=== PATIENT | female | born 1990 | race Caucasian/White ===

== ENCOUNTER 2017-01-02 06:39 | Inpatient (IN) ==
[2017-01-02] MEDS ORDERED: CITRIC ACID/SODIUM CITRATE 30 ML UDCUP PO ONE (07:36)
[2017-01-02] MEDS ORDERED: FAMOTIDINE 20 MG/2 ML VIAL IV ONE (07:36)
[2017-01-02 08:00] LABS: Basophils # 0.1 10*3/uL (0.0-0.2); Basophils % 0.4 % (0.0-0.8); Eosinophils # 0.1 10*3/uL (0.0-0.87); Eosinophils % 0.9 % (0.00-10.9); Hematocrit 36.5 VOL% (35.7-47.0); Hemoglobin 12.7 GM/DL (12.0-16.0); Immature Granulocytes % 0.6 %; Immature Granulocytes Absolute 0.07 #; Lymphocytes # 2.9 10*3/uL (1.4-4.0); Mean Corpuscular HGB Conc 34.8 GM/DL (32-36); Mean Corpuscular Hemoglobin 30 PG (27-34); Mean Corpuscular Volume 87.3 FL (87-102); Mean Platelet Volume 9.8 FL (9.6-12.0); Monocytes # 0.6 10*3/uL (0.11-0.8); Monocytes % 4.7 % (1.7-12.7); Neutrophils # 8.8 10*3/uL (1.4-7.4); Neutrophils % 70.4 % (38.7-73.9); Platelet Count 278 T/CUMM (130-400); Red Blood Count 4.18 MC/CUMM (3.8-5.5); Red Cell Distribution Width 14.3 % (9.3-17.3); White Blood Count 12.5 T/CUMM (4-12)
[2017-01-02] MEDS ORDERED: OXYTOCIN/LR 30 UNIT/1,000 ML BAG IV ONE (08:00)
[2017-01-02] MEDS ORDERED: OXYTOCIN 10 UNIT/ML VIAL IM ONE (08:00)
[2017-01-02 08:14] LABS: INR 0.8
[2017-01-02] MEDS: LACTATED RINGERS 1,000 ML IV SCH ×3 (08:31→09:40)
--- NOTE | 2017-01-02 08:33 | XRay Report ---
Exam: XR KUB Date: 01/02/2017 6:52 AM Comparison: None Indication: position Technique:[Portable supine abdomen] Findings: Nonobstructed bowel gas pattern. Single intrauterine fetus in the breech presentation with a spine on the maternal right side. No acute osseous findings are noted. Impression: Single intrauterine fetus in the breech presentation. Nonobstructed bowel gas pattern. PROCEDURE INTERPRETED AT [facility] DEPARTMENT OF RADIOLOGY Final Report Signed by: Dr. Helen Tellez
[2017-01-02 08:38] LABS: Alanine Aminotransferase 13 U/L (13-56); Albumin 2.6 G/DL (3.4-5.0); Alkaline Phosphatase 236 U/L (45-117); Aspartate Amino Transferase 15 U/L (0-37); Bilirubin,Total < 0.39 MG/DL (0.2-1.0); Blood Urea Nitrogen 6 MG/DL (7-18); Calcium 8.4 MG/DL (8.5-10.1); Glucose 83 MG/DL (74-106); Osmolality,Calculated 271.7 MOS/KG (273-304); Potassium 4.4 MMOL/L (3.5-5.1); Sodium 138 MMOL/L (136-145)
--- NOTE | 2017-01-02 09:33 | OB/GYN History & Physical ---
History of Present Illness Chief complaint: In for primary c/s due to breech presentation. History of present illness: Ms. Esquivel is a 26 year old female who is a primigravida. Her YANNI is 2017 for an estimated gestational age of 39 weeks. The patient presents to the labor department for primary section due to term in breech presentation the patient received her care through the [facility] and she received routine care and her course was uneventful. The risk and benefits has been thoroughly discussed with this patient and significant other, plan of care has been discussed with Dr. Reyes and all parties are in agreement plan of care. labs: She is O- she did receive RhoGam. Rubella is immune, RPR is nonreactive, hepatitis B negative, HIV negative, GBS cultures positive. Review of systems is negative with exception of above. Home Medications Medication Instructions Recorded Confirmed Type Folic Acid Tab 1 tablet PO DAILY 12/19/16 01/02/17 History No122/Iron/Folic Acid 1 tablet PO DAILY 12/19/16 01/02/17 History [ Multi Tablet] Allergies Allergy/AdvReac Type Severity Reaction Status Date / Time No Known Allergies Allergy Verified 01/02/17 07:34 12 point system: reviewed and no additional remarkable complaints except as stated Medical,Surgical,& Family Hx - Medical History Cardio: History of: Hypertension (no meds) - Surgical History HEENT Surgeries: Surgical HX of: Eye Surgery Abdominal Surgeries: Patient denies: Abdominal Surgery - Family History Family History: noncontributory Family History: Denies;: Family Anesthesia Reaction, Family Cancer, Family Diabetes, Family Heart Disease, Family Hematology, Family Hypertension, Family Psychiatric Problems, Family Stroke, Additional Family History - Social History Smoking Status: Never smoker Frequency of Alcohol Use: None Type of Drug Use: None Marital Status: Lives With:: Spouse Functional capacity: independent ambulation Exam ASSURANCE SENIOR MANAGER - Constitutional Vitals: Vital Signs Temp Pulse Resp BP Pulse Ox 01/02/17 07:54 97.3 F L 106 H 20 127/86 97 General appearance: no acute distress - Antepartum / Post Antepartum Exam Cervix - Dilatation: Deferred Abdomen obstetrics: Present: bowel sounds normal Uterus exam: Present: enlarged - Respiratory Respiratory exam: Present: clear to auscultation bilaterally - Cardiovascular Cardiovascular exam: Present: regular rate and rhythm - GI/Abdominal GI/Abdominal exam: Present: normal bowel sounds, soft - Extremities Exam Extremities exam: Present: normal inspection - Neurological Exam Neurological exam: Present: alert, oriented X3 - Psychiatric Psychiatric exam: Present: normal affect, normal mood - Skin Skin exam: Present: normal color, warm Assessment and Plan (1) 39 weeks gestation of Status: Acute Assessment and plan: Admit IV fluids Preop patient for primary section due to breech presentation Obtain informed consent for primary section Anticipate delivery of viable Current Visit: Yes (2) Breech presentation Status: Acute Assessment and plan: Same as above Current Visit: Yes Qualifiers: Fetus number: single or unspecified fetus Qualified Code(s): O32.1XX0 - Maternal care for breech presentation, not applicable or unspecified Results - Labs CBC & BMP: 01/02/17 07:50 01/02/17 07:50
[2017-01-02] MEDS ORDERED: ONDANSETRON 4 MG/2 ML VIAL ONE (10:01)
[2017-01-02] MEDS ORDERED: PHENYLEPHRINE 1 MG/10 ML SYRINGE IV ONE (10:01)
[2017-01-02] MEDS ORDERED: OXYTOCIN/LR 20 UNIT/1,000 ML BAG IV ONE ×3 (10:18→11:05)
[2017-01-02 11:05] LABS: Apearance,Urine CLEAR (Clear); Bilirubin,Urine Negative (Negative); Blood, Urine Negative (Negative); Glucose,Urine (UA) Negative (Negative); Ketones,Urine Negative (Negative); Mucus,Urine Occasional /LPF (Occasional); Nitrite,Urine Negative (Negative); Protein,Urine Negative; RBC,Urine <1 /HPF (0-4); Squamous Epithelial Cell,Urine Occasional /HPF (0-10); Urine Color Straw (Yellow); Urine Specific Gravity 1.005 (1.001-1.035); Urine Urobilinogen < 2.0 EU/DL (0.2-1.0); WBC,Urine <1 /HPF (0-6)
[2017-01-02 11:05] LABS: Cord Arterial Blood HCO3 20.5 MMOL/L
[2017-01-02] MEDS ORDERED: ONDANSETRON 4 MG/2 ML VIAL IV PRN (11:05)
[2017-01-02] MEDS ORDERED: RHO(D) IMMUNE GLOBULIN 300 MCG SYRINGE IM ONE (11:05)
[2017-01-02] MEDS ORDERED: ACETAMINOPHEN 325 MG TABLET PO PRN (11:05)
--- NOTE | 2017-01-02 11:05 | Operative Note ---
Date of procedure: 01/02/17 Procedure: Preoperative diagnosis: Term 39 weeks, breech presentation rebecca breech Postoperative diagnosis: Same Anesthesia:[] Regional anesthesia Estimated blood loss: [] 300 cc Surgeon: Dr. Reyes Findings: [] Male infant, 8 lbs. 11 oz., born at 1030, Apgars 8 at 1 minute, and 9 at 5 minutes, cord blood was obtained and cord gas Complications: None Procedure: Low transverse section The patient was taken to the operating suite heart tones were obtained prior to and after regional anesthesia was obtained. She was placed in supine position her abdomen was prepped and draped in usual manner for major abdominal surgery. Through an abdominal incision the skin, subcutaneous, fascial layer and peritoneal the abdomen was entered. The bladder flap was created and a low transverse incision was made.. Fluid was clear and normal amount X, Apgars, the placenta was delivered and sent to lab for further evaluation. Injected with intrauterine Pitocin. The first layer of the uterus was closed with #1 Vicryl in a continuous locking manner. Close to imbricate the first layer with #1 Vicryl. The peritoneum was approximated with #2-0 Vicryl.[] All the last sponges and instruments were accounted for -2.) #2-0 Vicryl. Fascia was approximated with #0-0 Maxon.. The skin was approximated with hardik. She tolerated procedure well and was taken to recovery room in stable condition. Surgeon / Physician: Arminda Reyes Results - Labs CBC & BMP: 01/02/17 07:50 01/02/17 07:50 Discharge Plan - Discharge Medications No Action No122/Iron/Folic Acid [ Multi Tablet] 1 tablet PO DAILY Folic Acid Tab 1 tablet PO DAILY - Follow Up or Referral - Forms/Instructions
[2017-01-02 11:08] LABS: Cord Venous Blood HCO3 22.9 MMOL/L; Cord Venous Blood PCO2 40.6 MMHG; Cord Venous Blood PO2 27.5
[2017-01-02] MEDS ORDERED: fentaNYL 100 MCG/2 ML VIAL ONE (11:23)
[2017-01-02] MEDS ORDERED: MORPHINE 10 MG/10 ML VIAL ONE (11:24)
[2017-01-02] MEDS ORDERED: LACTATED RINGERS 1,000 ML IV SCH (11:30)
--- NOTE | 2017-01-02 13:06 | Anesthesia Post-Op ---
Anesthesia Post OP - Post Ansesthetic Evaluation Patient seen in post op: Yes Resp: within normal limits CV: within normal limits Mental: within normal limits Temp: within normal limits [id number]: within normal limits Nausea and Vomiting: within normal limits Pain: within normal limits
[2017-01-02] MEDS ORDERED: hydrOXYzine HCL 25 MG/1 ML VIAL IM PRN (14:55)
[2017-01-02 18:21] LABS: Basophils # 0.1 10*3/uL (0.0-0.2); Basophils % 0.3 % (0.0-0.8); Eosinophils % 0.2 % (0.00-10.9); Hematocrit 31.8 VOL% (35.7-47.0); Hemoglobin 11.1 GM/DL (12.0-16.0); Immature Granulocytes % 0.4 %; Immature Granulocytes Absolute 0.07 #; Lymphocytes # 2.4 10*3/uL (1.4-4.0); Lymphocytes % 14.1 % (21.3-54.2); Mean Corpuscular HGB Conc 34.9 GM/DL (32-36); Mean Corpuscular Hemoglobin 31 PG (27-34); Mean Corpuscular Volume 88.1 FL (87-102); Mean Platelet Volume 9.6 FL (9.6-12.0); Monocytes # 0.7 10*3/uL (0.11-0.8); Monocytes % 4.1 % (1.7-12.7); Neutrophils # 13.5 10*3/uL (1.4-7.4); Neutrophils % 80.9 % (38.7-73.9); Platelet Count 237 T/CUMM (130-400); Red Blood Count 3.61 MC/CUMM (3.8-5.5); Red Cell Distribution Width 14.3 % (9.3-17.3); White Blood Count 16.7 T/CUMM (4-12)
[2017-01-03] MEDS: DOCUSATE SODIUM 100 MG CAPSULE PO SCH ×3 (01:44→21:33)
[2017-01-03] MEDS ORDERED: LACTATED RINGERS 1,000 ML IV SCH (04:00)
[2017-01-03] MEDS: IBUPROFEN 800 MG TABLET PO PRN (06:07)
[2017-01-03 06:48] LABS: Basophils % 0.2 % (0.0-0.8); Eosinophils # 0.1 10*3/uL (0.0-0.87); Eosinophils % 0.7 % (0.00-10.9); Hemoglobin 11.2 GM/DL (12.0-16.0); Immature Granulocytes % 0.6 %; Immature Granulocytes Absolute 0.08 #; Lymphocytes # 2.3 10*3/uL (1.4-4.0); Lymphocytes % 16.8 % (21.3-54.2); Mean Corpuscular HGB Conc 33.9 GM/DL (32-36); Mean Corpuscular Hemoglobin 30 PG (27-34); Mean Corpuscular Volume 88.9 FL (87-102); Mean Platelet Volume 9.8 FL (9.6-12.0); Monocytes # 0.6 10*3/uL (0.11-0.8); Monocytes % 4.2 % (1.7-12.7); Neutrophils # 10.6 10*3/uL (1.4-7.4); Neutrophils % 77.5 % (38.7-73.9); Platelet Count 226 T/CUMM (130-400); Red Blood Count 3.71 MC/CUMM (3.8-5.5); Red Cell Distribution Width 14.5 % (9.3-17.3); White Blood Count 13.7 T/CUMM (4-12)
[2017-01-03] MEDS: MAGNESIUM HYDROXIDE SUSP 30 ML UDCUP PO PRN ×2 (08:04→21:33)
[2017-01-03] MEDS: SIMETHICONE CHEW 80 MG TABLET PO PRN ×2 (08:04→21:33)
[2017-01-03] MEDS: MULTIVITAMIN (PRENATAL) TABLET PO SCH (08:04)
--- NOTE | 2017-01-03 09:47 | OB/GYN Progress Note ---
Assessment and Plan (1) 39 weeks gestation of Status: Acute Assessment and plan: Admit IV fluids Preop patient for primary section due to breech presentation Obtain informed consent for primary section Anticipate delivery of viable Current Visit: Yes (2) Breech presentation Status: Acute Assessment and plan: Same as above Current Visit: Yes Qualifiers: Fetus number: single or unspecified fetus Qualified Code(s): O32.1XX0 - Maternal care for breech presentation, not applicable or unspecified (3) Status post primary low transverse section Status: Acute Assessment and plan: Initiate routine postop orders. Current Visit: Yes PLANT WRAPPER - PN: Subj Interval history: Stable with no complaints. Bonding well with . Exam PLANT WRAPPER - Constitutional Vitals: Vital Signs Temp Pulse Resp BP Pulse Ox 01/03/17 07:29 98 F 86 18 110/70 97 01/03/17 04:00 97.5 F L 82 18 116/65 01/03/17 03:00 18 01/03/17 01:00 18 01/03/17 00:00 98.2 F 85 18 113/62 98 01/02/17 20:00 98.3 F 86 18 112/70 99 01/02/17 17:30 84 20 120/65 98 01/02/17 16:30 95 H 20 125/68 98 01/02/17 15:30 90 20 115/63 98 01/02/17 15:00 82 20 118/61 98 01/02/17 14:30 97.9 F 83 20 122/74 98 01/02/17 12:00 97 F L 87 18 101/56 100 General appearance: no acute distress - Antepartum / Post Post Exam Breast: bilateral: normal Abdomen obstetrics: Present: bowel sounds normal Vagina: Present: normal moisture, discharge (Light lochia rubra) Uterus exam: Present: enlarged (Fundus firm and midline) Anus/Rectum: Present: normal perianal skin - Gyencological / Post Surgical Post Surgical Exam Lungs: bilateral: normal Chest: Normal S1, Normal S2 Extremities PLANT WRAPPER: Present: normal Abdomen obstetrics progress note: Present: normal appearance, soft Incision OB: Present: normal, intact - Respiratory Respiratory exam: Present: clear to auscultation bilaterally - Cardiovascular Cardiovascular exam: Present: regular rate and rhythm - GI/Abdominal GI/Abdominal exam: Present: normal bowel sounds, soft - Extremities Exam Extremities exam: Present: normal inspection - Back Exam Back exam: Present: normal inspection - Neurological Exam Neurological exam: Present: alert, oriented X3 - Psychiatric Psychiatric exam: Present: normal affect, normal mood - Skin Skin exam: Present: normal color, warm Results - Labs CBC & BMP: 01/03/17 06:24 01/02/17 07:50
[2017-01-03] MEDS: FUROSEMIDE 40 MG/4 ML VIAL IV SCH ×2 (11:10→19:27)
[2017-01-03] MEDS ORDERED: RHO(D) IMMUNE GLOBULIN 300 MCG SYRINGE IM ONE (16:12)
[2017-01-04] MEDS: FUROSEMIDE 40 MG/4 ML VIAL IV SCH (03:36)
[2017-01-04 07:25] VITALS: BP 123/74
[2017-01-04] MEDS: MULTIVITAMIN (PRENATAL) TABLET PO SCH (08:56)
[2017-01-04] MEDS: DOCUSATE SODIUM 100 MG CAPSULE PO SCH (08:56)
[2017-01-04] MEDS: IBUPROFEN 800 MG TABLET PO PRN (08:56)
[2017-01-04] MEDS: SIMETHICONE CHEW 80 MG TABLET PO PRN (09:48)
--- NOTE | 2017-01-04 09:49 | OB/GYN Progress Note ---
Assessment and Plan (1) 39 weeks gestation of Status: Acute Assessment and plan: Admit IV fluids Preop patient for primary section due to breech presentation Obtain informed consent for primary section Anticipate delivery of viable Current Visit: Yes (2) Breech presentation Status: Acute Assessment and plan: Same as above Current Visit: Yes Qualifiers: Fetus number: single or unspecified fetus Qualified Code(s): O32.1XX0 - Maternal care for breech presentation, not applicable or unspecified (3) Status post primary low transverse section Status: Acute Assessment and plan: Initiate routine postop orders. Current Visit: Yes REPLENISHMENT SPECIALIST - PN: Subj Interval history: No complaints voiced at present. Bonding well with and desires to go home. Exam REPLENISHMENT SPECIALIST - Constitutional Vitals: Vital Signs Temp Pulse Resp BP Pulse Ox 01/04/17 07:24 96.9 F L 99 H 18 123/74 98 01/04/17 05:00 18 01/04/17 04:00 97.9 F 103 H 18 124/74 01/04/17 03:00 18 01/04/17 02:00 18 01/04/17 01:00 18 01/04/17 00:00 97.2 F L 94 H 18 122/75 95 01/03/17 20:00 98.9 F 105 H 18 122/85 98 01/03/17 15:44 97.8 F 105 H 20 114/71 98 01/03/17 11:20 96.4 F L 93 H 20 125/76 98 General appearance: no acute distress - Gyencological / Post Surgical Post Surgical Exam Lungs: bilateral: normal Chest: Normal S1, Normal S2 Extremities REPLENISHMENT SPECIALIST: Present: normal Abdomen obstetrics progress note: Present: normal appearance, soft Incision OB: Present: normal, dry, intact - Respiratory Respiratory exam: Present: clear to auscultation bilaterally - Cardiovascular Cardiovascular exam: Present: regular rate and rhythm - GI/Abdominal GI/Abdominal exam: Present: normal bowel sounds, soft - Extremities Exam Extremities exam: Present: normal inspection - Neurological Exam Neurological exam: Present: alert, oriented X3 - Psychiatric Psychiatric exam: Present: normal affect, normal mood - Skin Skin exam: Present: normal color, warm Results - Labs CBC & BMP: 01/03/17 06:24 01/02/17 07:50
--- NOTE | 2017-01-04 09:51 | Discharge Summary ---
Hospital Course - Hospital Course Hospital Course: Ms. Esquivel presented for primary section due to breech presentation. The surgery was performed in a viable infant was delivered with no complications. She has followed a normal postoperative course and she has done well. Her bleeding is minimal with no odor. Her vital signs and lab values are stable. Her fundus is firm and midline. She has positive bowel sounds. She is voiding without difficulty. She is bonding well with her and desires to be discharged to home. Contraception options has been discussed with this patient and she is unsure of method at this time. She will be discharged home with prescriptions for pain and follow-up appointment in our office. Diagnosis - Discharge Diagnosis (1) 39 weeks gestation of Status: Acute (2) Breech presentation Status: Acute (3) Status post primary low transverse section Status: Acute Specialty Discharge - Follow Up or Referrals Follow up with: Arminda Reyes MD [Physician] - 2 Weeks Discharge Plan - Discharge Data Disposition: Disch To Home/Self Care Condition at Discharge: Stable Discharge Diet: advance to your usual diet, regular diet Activity: resume usual activities as tolerated, increase activity as tolerated, no lifting, no prolonged standing Hygiene: may shower Weight Bearing at Discharge: partial weight bearing Driving: not until seen by doctor Contact your physician if you experience:: fever over 101, Shortness of breath, pain uncontrolled by pain medications - Discharge Medications New HYDROcodone/ACETAMIN 5-325 [[place] 5-325] 2 tablet PO Q6H PRN #30 tablet PRN Reason: Pain Severe (8-10) Ibuprofen Tab [Motrin Tab] 800 mg PO Q8H PRN #30 tablet PRN Reason: Pain Severe (8-10) No Action No122/Iron/Folic Acid [ Multi Tablet] 1 tablet PO DAILY Folic Acid Tab 1 tablet PO DAILY - Follow Up or Referral - Forms/Instructions Exam - Constitutional Vitals: Period Temp Pulse Resp BP Sys/Dodson Pulse Ox Last 24 Hr 96.4 F-98.9 F 93-105 18-20 114-125/71-85 95-98 General appearance: no acute distress - Respiratory Respiratory exam: Present: clear to auscultation bilaterally - Cardiovascular Cardiovascular exam: Present: regular rate and rhythm - GI/Abdominal GI/Abdominal exam: Present: normal bowel sounds, soft - Extremities Exam Extremities exam: Present: normal inspection - Neurological Exam Neurological exam: Present: alert, oriented X3 - Psychiatric Psychiatric exam: Present: normal affect, normal mood - Skin Skin exam: Present: normal color, warm DS: Provider Date of admission: 01/02/17 07:36 Primary care physician: . No PCP Attending physician on admission: Arminda Reyes MD Consults: 01/02/17 07:36 Consult to Anesthesiology [CONS] Routine Consulting Provider: Reason for Anesthesiology: Pre-op Clearance 01/02/17 11:05 Consult to Customer Engagement Analyst [CONS] Routine Consult Customer Engagement Analyst: Breast Feeding Discharging clinician: Dacia Martinez CNM Expected date of discharge: 01/04/17
== END 2017-01-04 13:30 | disposition home or self-care (01) | DRG 766 ==
LOC: EDSTATUS 06:39 → N.LDOUT 06:39 → N.LD 06:40 → N.OB 14:11
PROVIDERS: ADMIT Obstetrics & Gynecology; ATTEND Obstetrics & Gynecology
PROC: LDCSECT (ICD-10-PCS; 2017-01-02 10:00)